=== PATIENT | male | born 1995 | race Two or more races ===

== ENCOUNTER 2018-04-17 11:11 | Emergency (ER) | payer OTHER ==
[~2018-04-17] VITALS: Ht 170.2 cm; Wt 72.6 kg
[~2018-04-17 11:11] MED LIST: KEFLEX500 MG PO
== END 2018-04-17 14:08 | disposition home or self-care (01) ==
LOC: ER 11:11
DX: T78.3XXA Angioneurotic edema, initial encounter (principal); T78.1XXA Other adverse food reactions, not elsewhere classified, initial encounter; T78.49XA Other allergy, initial encounter; X58.XXXA Exposure to other specified factors, initial encounter